=== PATIENT | female | born 1980 | race Hispanic/Latino ===

== ENCOUNTER 2017-03-24 20:29 | Emergency (ER) | payer SELFPAY ==
[2017-03-24 20:55] LABS: APPEARANCE,URINE Cloudy (CLEAR); BILIRUBIN,URINE Small (NEGATIVE); COLOR,URINE Dark Yellow (YELLOW); GLUCOSE, URINE (UA) Negative (NEGATIVE); KETONES,URINE 40 mg/dL (NEGATIVE); LEUKOCYTE ESTERASE ,URINE Moderate (NEGATIVE); NITRATE,URINE Positive (NEGATIVE); OCCULT BLOOD,URINE Large (NEGATIVE); PROTEIN,URINE POS 1+ (NEGATIVE)
[2017-03-24 20:56] LABS: HCG,QUAL RESULT NEGATIVE (NEGATIVE)
[2017-03-24 21:07] LABS: BACTERIA,URINE Moderate /HPF (None Seen); SQUAMOUS EPITHELIAL CELL,UR 0-2 /LPF (0-2)
[2017-03-24 21:14] LABS: BASOPHILS % (AUTO) 0.3 % (0.0-5.0); HEMATOCRIT 37.6 % (36-48); LYMPHOCYTES % (AUTO) 6.8 % (21.0-51.0); MEAN CORPUSCULAR HEMOGLOBIN 27.7 pg (27.0-33.0); MEAN CORPUSCULAR HGB CONC 33.9 g/dL (32.0-36.0); MEAN CORPUSCULAR VOLUME 81.7 fL (79-99); MONOCYTES % (AUTO) 11.3 % (3.0-13.0); NEUTROPHILS % (AUTO) 81.6 % (40.0-77.0); PLATELET COUNT (AUTO) 215 K/uL (130-400); RED CELL DISTRIBUTION WIDTH 14.5 % (11.0-15.5); WHITE BLOOD COUNT (AUTO) 17.4 K/uL (4.8-10.8)
[2017-03-24] MEDS ORDERED: ACETAMINOPHEN EXTRA STRENGTH 500 MG TABLET ONE (21:15)
[2017-03-24] MEDS ORDERED: ONDANSETRON ODT 4 MG TAB ONE (21:15)
[2017-03-24 21:17] LABS: CREATININE 0.9 mg/dL (0.5-1.5); POTASSIUM 3.7 mmol/L (3.5-5.1)
[2017-03-24 21:21] LABS: ALBUMIN 3.6 g/dL (3.5-5.0); BILIRUBIN,TOTAL 0.9 mg/dL (0.2-1.0); TOTAL PROTEIN, SERUM 8.7 g/dL (6.0-8.3)
[2017-03-24] MEDS ORDERED: SODIUM CHLORIDE 0.9% 1000ML 1,000 ML IV ONE (22:16)
[2017-03-24] MEDS ORDERED: CEFTRIAXONE SODIUM 1 GM ONE (22:16)
== END 2017-03-24 23:12 | disposition home or self-care (01) ==
LOC: EDH 20:29
DX: N10 Acute pyelonephritis (principal)
CPT/HCPCS: 36415; 80053; 81001; 81025; 85025; 87088; 87186; 87804 ×2; 96361; 96374; 99284; J0696; J7030; 96365

== ENCOUNTER 2018-12-12 00:26 | Emergency (ER) | payer OTHER ==
[2018-12-12] MEDS ORDERED: METHYLPREDNISOLONE SOD SUCC 125MG/2ML VIAL ONE (01:02)
[2018-12-12] MEDS ORDERED: KETOROLAC TROMETHAMINE 30MG/ML ONE (01:03)
== END 2018-12-12 02:36 | disposition home or self-care (01) ==
LOC: EDH 00:26
DX: M25.461 Effusion, right knee (principal); M25.559 Pain in unspecified hip
CPT/HCPCS: 73562; 96372 ×2; 99284; J1885; J2930

== ENCOUNTER 2020-08-20 17:33 | Emergency (ER) | payer MEDICAID, OTHER ==
[~2020-08-20] VITALS: Ht 162.6 cm; Wt 78.0 kg
[2020-08-20 18:45] VITALS: BP 125/72
[2020-08-20] MEDS ORDERED: 0.9%NACL 1000ML 1,000 ML IV ONE (19:45)
[2020-08-20] MEDS ORDERED: MORPHINE 4 MG SYG IVP ONE (19:45)
[2020-08-20] MEDS ORDERED: ACETAMINOPHEN 325 MG TAB PO ONE (19:45)
[2020-08-20] MEDS ORDERED: ONDANSETRON 4MG INJ IVP ONE (19:45)
[2020-08-20 19:47] LABS: BASOPHILS % (AUTO) 0.3 % (0.0-5.0); HEMATOCRIT 42.6 % (36-48); LYMPHOCYTES % (AUTO) 30.2 % (21.0-51.0); MEAN CORPUSCULAR HEMOGLOBIN 27.8 pg (27.0-33.0); MEAN CORPUSCULAR HGB CONC 32.9 g/dL (32.0-36.0); MEAN CORPUSCULAR VOLUME 84.7 fL (79-99); MONOCYTES % (AUTO) 8.9 % (3.0-13.0); NEUTROPHILS % (AUTO) 58.4 % (40.0-77.0); PLATELET COUNT (AUTO) 258 K/uL (130-400); RED BLOOD CELL COUNT(AUTO) 5.03 MIL/uL (4.00-5.50); RED CELL DISTRIBUTION WIDTH 12.9 % (11.0-15.5); WHITE BLOOD COUNT (AUTO) 9.3 K/uL (4.8-10.8)
[2020-08-20 20:04] LABS: APPEARANCE,URINE Clear (CLEAR); BILIRUBIN,URINE Negative (NEGATIVE); COLOR,URINE Dark Yellow (YELLOW); GLUCOSE, URINE (UA) Negative (NEGATIVE); KETONES,URINE Negative (NEGATIVE); LEUKOCYTE ESTERASE ,URINE Small (NEGATIVE); NITRATE,URINE Negative (NEGATIVE); OCCULT BLOOD,URINE Moderate (NEGATIVE); PROTEIN,URINE Negative (NEGATIVE)
[2020-08-20 20:07] LABS: CREATININE 0.8 mg/dL (0.5-1.5); POTASSIUM 4.3 mmol/L (3.5-5.1)
[2020-08-20 20:08] LABS: HCG,QUAL RESULT NEGATIVE (NEGATIVE)
[2020-08-20 20:10] LABS: RBC,URINE 0-1 /HPF (0-1)
[2020-08-20 20:11] LABS: BACTERIA,URINE Few /HPF (None Seen); MUCUS,URINE Few LPF (None Seen); SQUAMOUS EPITHELIAL CELL,UR Few /HPF (0-2)
[2020-08-20 20:11] LABS: BILIRUBIN,TOTAL 0.6 mg/dL (0.2-1.0); TOTAL PROTEIN, SERUM 8.7 g/dL (6.0-8.3)
[2020-08-20] MEDS ORDERED: IOHEXOL 350 MG/ML 100ML INFUS..BTL IV ONE (20:24)
[2020-08-20] MEDS ORDERED: ONDA4TAB4 PO (21:47)
[2020-08-20] MEDS ORDERED: DICY10I IM (21:47)
[2020-08-20] MEDS ORDERED: SULF1TAB42 PO (21:47)
[2020-08-20 21:49] VITALS: BP 125/72
== END 2020-08-20 22:04 | disposition home or self-care (01) ==
LOC: EDH 17:33
DX: K52.9 Noninfective gastroenteritis and colitis, unspecified (principal); N39.0 Urinary tract infection, site not specified; Z79.899 Other long term (current) drug therapy
CPT/HCPCS: 36415; 74177; 80053; 81001; 81025; 83690; 84484; 85025; 87088; 96361; 96374; 96375; 99285; J2270; J2405; J7030; Q9967; 93005

== ENCOUNTER 2021-07-30 19:53 | Emergency (ER) | payer BC, MEDICAID, OTHER ==
[~2021-07-30] VITALS: Ht 165.1 cm; Wt 83.5 kg
[~2021-07-30 19:53] MED LIST: DICY10I IM; ONDA4TAB4 PO; SULF1TAB42 PO
[2021-07-30] MEDS ORDERED: CYCL10TA16 PO (23:25)
[2021-07-30] MEDS ORDERED: NAPR-1180 PO (23:25)
[2021-07-30] MEDS ORDERED: CYCLOBENZAPRINE HCL 10 MG TABLET PO ONE (23:30)
[2021-07-30] MEDS ORDERED: KETOROLAC 60 MG VIAL (30MG/ML) IM ONE (23:30)
[2021-07-30] MEDS ORDERED: HYDROCODONE/ACETAMINOPHEN 5/325 MG TAB PO ONE (23:30)
[2021-07-30 23:36] VITALS: BP 128/68
== END 2021-07-30 23:40 | disposition home or self-care (01) ==
LOC: EDH 19:53
DX: S39.012A Strain of muscle, fascia and tendon of lower back, initial encounter (principal); Z79.899 Other long term (current) drug therapy; Z98.890 Other specified postprocedural states; X50.0XXA Overexertion from strenuous movement or load, initial encounter; Y93.89 Activity, other specified; Y92.89 Other specified places as the place of occurrence of the external cause; Y99.8 Other external cause status
CPT/HCPCS: 96372; 99283; J1885

== ENCOUNTER 2021-08-24 09:34 | Emergency (ER) | payer BC, OTHER ==
[~2021-08-24] VITALS: Ht 165.1 cm; Wt 81.6 kg
[~2021-08-24 09:34] MED LIST changes: +CYCL10TA16 PO; +NAPR-1180 PO
[2021-08-24 10:01] LABS: APPEARANCE,URINE Cloudy (CLEAR); BILIRUBIN,URINE Negative (NEGATIVE); COLOR,URINE Dark Yellow (YELLOW); GLUCOSE, URINE (UA) Negative (NEGATIVE); KETONES,URINE Negative (NEGATIVE); LEUKOCYTE ESTERASE ,URINE Trace (NEGATIVE); NITRATE,URINE Negative (NEGATIVE); OCCULT BLOOD,URINE Small (NEGATIVE); PH,URINE 5.5 (5.0-8.0); PROTEIN,URINE Negative (NEGATIVE)
[2021-08-24 10:18] LABS: BACTERIA,URINE Rare /HPF (None Seen); MUCUS,URINE Few LPF (None Seen); RBC,URINE 0-1 /HPF (0-1); SQUAMOUS EPITHELIAL CELL,UR Few /HPF (0-2); WBC,URINE 0-1 /HPF (0-1)
[2021-08-24] MEDS ORDERED: KETOROLAC 60 MG VIAL (30MG/ML) IM ONE (11:00)
[2021-08-24] MEDS ORDERED: LIDOCAINE 5% TOPICAL PATCH TP ONE (11:00)
[2021-08-24] MEDS ORDERED: HYDROCODONE/ACETAMINOPHEN 10/325 MG TAB PO ONE (11:00)
[2021-08-24] MEDS ORDERED: LIDOP TD (11:34)
[2021-08-24] MEDS ORDERED: ACET-2079 PO (11:34)
[2021-08-24] MEDS ORDERED: IBUP-2070 PO (11:34)
[2021-08-24 11:47] VITALS: BP 123/79
== END 2021-08-24 11:48 | disposition home or self-care (01) ==
LOC: EDH 09:34
DX: S39.012A Strain of muscle, fascia and tendon of lower back, initial encounter (principal); Z79.1 Long term (current) use of non-steroidal anti-inflammatories (NSAID); Z79.899 Other long term (current) drug therapy; X58.XXXA Exposure to other specified factors, initial encounter; Y93.89 Activity, other specified; Y92.89 Other specified places as the place of occurrence of the external cause; Y99.8 Other external cause status
CPT/HCPCS: 81001; 96372; 99284; J1885

== ENCOUNTER 2021-10-04 14:23 | Emergency (ER) | payer BC ==
[~2021-10-04] VITALS: Ht 165.1 cm; Wt 80.7 kg
[~2021-10-04 14:23] MED LIST changes: +ACET-2079 PO; +IBUP-2070 PO; +LIDOP TD
[2021-10-04 14:24] VITALS: BP 109/78
[2021-10-04] MEDS ORDERED: NAPR-1180 PO (14:50)
[2021-10-04] MEDS ORDERED: KETOROLAC 60 MG VIAL (30MG/ML) IM ONE (15:00)
== END 2021-10-04 15:04 | disposition home or self-care (01) ==
LOC: EDH 14:23
DX: S52.121A Displaced fracture of head of right radius, initial encounter for closed fracture (principal); S93.402A Sprain of unspecified ligament of left ankle, initial encounter; S50.01XA Contusion of right elbow, initial encounter; M25.531 Pain in right wrist; Z79.899 Other long term (current) drug therapy; Z98.890 Other specified postprocedural states; W10.9XXA Fall (on) (from) unspecified stairs and steps, initial encounter; Y93.01 Activity, walking, marching and hiking; Y92.098 Other place in other non-institutional residence as the place of occurrence of the external cause; Y99.8 Other external cause status
CPT/HCPCS: 99284; 73610; 73080; 73110; 96372; J1885

== ENCOUNTER 2022-07-09 17:56 | Emergency (ER) | payer BC, OTHER ==
[~2022-07-09] VITALS: Ht 167.6 cm; Wt 79.8 kg
[2022-07-09 18:07] VITALS: BP 125/86
[2022-07-09] MEDS ORDERED: CLIN-141 PO (18:59)
[2022-07-09] MEDS ORDERED: DIPH25TA51 PO (18:59)
[2022-07-09] MEDS ORDERED: MOXIOS OD (18:59)
[2022-07-09] MEDS ORDERED: METH4TAB3 PO (18:59)
[2022-07-09] MEDS ORDERED: ERYT1OIN7 OP (18:59)
[2022-07-09] MEDS ORDERED: DEXAMETHASONE SOD PHOSPHATE 4 MG/ML 1ML VIAL IM ONE (19:00)
[2022-07-09] MEDS ORDERED: CEFTRIAXONE 1G VIAL IVPB ONE (19:00)
[2022-07-09] MEDS ORDERED: DIPHENHYDRAMINE HCL 25 MG CAPSULE PO ONE (19:00)
== END 2022-07-09 19:08 | disposition home or self-care (01) ==
LOC: EDH 17:56
DX: H01.001 Unspecified blepharitis right upper eyelid (principal); Z98.51 Tubal ligation status
CPT/HCPCS: 99284; 96374; 96372; J1100; Q0163; J0696